=== PATIENT | male | born 1930 | race Caucasian/White ===

== ENCOUNTER → 2017-06-08 | Outpatient (REF) | payer MEDICARE, OTHER ==
[~2017-06-08] MED LIST: CALC-771 PO; CALC-854 PO; CALC600T63 PO; CHOL10005 PO; CHOL400T55 PO; CITRACAL PO; CYCL10TA29 PO; FIN5 PO; LISI-362 PO; LISI5TAB25 PO; LOR5/325 PO; MULT-977 PO; OMEP-153 PO; TAM4 PO
== END ==
LOC: ZZSENDIN 15:36
PROVIDERS: ATTEND Urology
DX: C61 Malignant neoplasm of prostate (principal)
CPT/HCPCS: 84403

== ENCOUNTER → 2017-06-12 | Outpatient (CLI) | payer MEDICARE, OTHER ==
[~2017-06-12] MED LIST changes: +GADOBENATE 529MG/1ML 15ML VIAL IVP ONE
--- NOTE | 2017-06-12 12:34 | RADIOLOGY IMAGING REPORT ---
FACILITY: [facility] PATIENT NAME: Shad Person : 1930 MR: [id number] V: [id number] EXAM DATE: ORDERING PHYSICIAN: REYNALDO MANN TECHNOLOGIST: Location: [facility] Patient: Shad Person : 1930 Visit/Account:[id number] Date of Sevice: 06/12/2017 BRAIN W W/O CONTRAST Comparisons: None. Additional pertinent history: Diplopia TECHNIQUE: Multiplanar, multisequence brain MRI was performed with and without gadolinium contrast. CONTRAST: 10 ml of MultiHance. FINDINGS: Sagittal midline structures and craniocervical junction: Negative. Midline shift: None. Ventricles: Mild enlargement of the lateral and third ventricles. Brain parenchyma: Diffusion weighted imaging: Negative. Gradient sequence: Negative. T2 weighted FLAIR images: Negative. Extra-axial spaces: Mild cerebral atrophy. Otherwise negative Dural venous sinuses and major arterial flow voids: Negative. Intracranial enhancement: Negative.. Mastoid air cells and paranasal sinuses: Mild mucosal thickening involving the ethmoid air cells. Ot herwise negative Surrounding soft tissues and orbits: Negative. Impression: 1. Age related changes as described above. 2. No evidence of acute intracranial pathology. Report Dictated By: Toi Quigley MD at 06/12/2017 12:25 PM Report E-Signed By: Toi Quigley MD at 06/12/2017 12:30 PM WSN:[id number]
== END ==
LOC: MRI 03:27
PROVIDERS: ATTEND Family Medicine
DX: G31.89 Other specified degenerative diseases of nervous system (principal)
CPT/HCPCS: 70553; A9577

== ENCOUNTER 2017-06-13 09:53 | Outpatient (RCR) | payer MEDICARE, OTHER ==
[2017-06-06 10:32] VITALS: BP 146/79
[~2017-06-13 09:53] MED LIST changes: -GADOBENATE 529MG/1ML 15ML VIAL IVP ONE
== END 2017-06-26 13:37 | disposition home or self-care (01) ==
LOC: RAON 09:53
PROVIDERS: ATTEND Radiology Radiation Oncology
DX: Z85.46 Personal history of malignant neoplasm of prostate (principal); Z92.3 Personal history of irradiation; K21.9 Gastro-esophageal reflux disease without esophagitis; Z87.891 Personal history of nicotine dependence
CPT/HCPCS: 36415; 84153; G0463; 99212

== ENCOUNTER 2017-10-19 10:17 | Outpatient (RCR) | payer MEDICARE, OTHER ==
[2017-09-13 10:05] VITALS: BP 147/82
--- NOTE | 2017-10-19 16:33 | ONCOLOGY FOLLOW UP NOTE ---
EVENT DATE: October 19, 2017 REASON FOR VISIT Oncologic reevaluation. HISTORY OF PRESENT ILLNESS Prostate adenocarcinoma status post initial IMRT and brachytherapy in May 2017 with a single dose of Lupron. The patient had a PSA failure in December of 2013 and was reinitiated on Lupron. The patient underwent palliative radiotherapy to the right superior ramus and inferior pubic ramus to a dose of 50 Gy in January of 2012. The patient continued on Lupron, and more recently has been discontinued on Lupron and is being observed. His testosterone levels have remained castrate, with his most recent level in June 2017 at 13. The patient presents today for followup. On presentation today, patient overall fells well. He does report some fatigue. His urinary symptoms are stable. His AOA score today is 9. He has nocturia 2-3 times per night with some moderate urgency. He does have occasional urge incontinence if he postpones urination too long. He denies any new sites of bone pain. The patient remains active and walks 1-1/2 miles a day and additionally does weightlifting. The patient most recently had a PSA of 0.17 on September 13, 2017. He is following with Dr. Kemp. The patient will be heading down to [place], [place] for the winter. PAST MEDICAL HISTORY 1. Prostate adenocarcinoma, see above. 2. History of chronic prostatitis. 3. GERD. PAST SURGICAL HISTORY 1. Status post appendectomy. 2. Hemorrhoidectomy in 1977. 3. Status post rectal fissure repair in 1976. 4. Status post tonsillectomy in 1955. ALLERGIES IBUPROFEN. MEDICATIONS 1. Cholecalciferol. 2. Lisinopril 10 mg. 3. Citracal. 4. Tamsulosin 0.4 mg daily. 5. Omeprazole. SOCIAL HISTORY The patient is a past smoker for 30 years with a 26 pack-year history. The patient drinks alcohol occasionally. He is . he and his spouse winter in [place], [place]. PHYSICAL EXAMINATION VITAL SIGNS: Temperature 98, pulse 66, blood pressure 153/72, respiratory rate 16, O2 saturation is 94% on room air. GENERAL APPEARANCE: The patient is sitting comfortably in a chair in no acute distress. HEENT: Pupils are equal, round, reactive to light and accommodation. Extraocular movements are intact. There are no lesions of the oropharynx. NECK: Supple. Trachea is midline. LYMPHATICS: There is no palpable supraclavicular lymphadenopathy bilaterally. LUNGS: Clear to auscultation and percussion bilaterally. CARDIOVASCULAR: Regular rate and rhythm. Normal S1, S2. No murmurs, rubs or gallops. ABDOMEN: Soft, nontender with active bowel sounds. No hepatosplenomegaly. EXTREMITIES: No edema, clubbing or cyanosis. NEUROLOGIC: The patient is alert and oriented x3. Gait is normal. Performance status 90%. IMPRESSION Prostate adenocarcinoma, initially diagnosed n . The patient completed definitive radiotherapy and had a biochemical relapse in 2013. He was initiated on Lupron, but is now on hold with this medication, as he remains castrate without an LHRH agonist. The patient's PSA s relatively stable at 0.17. PLAN We will follow up with the patient in eight months when he returns from [place]. We will recheck his PSA then as well as a total testosterone. If the patient's PSA does continue to rise, we will likely reinitiate an LHRH agonist. MTDD
== END 2017-11-01 09:19 | disposition home or self-care (01) ==
LOC: RAON 10:17
PROVIDERS: ATTEND Urology
DX: C61 Malignant neoplasm of prostate (principal); Z92.3 Personal history of irradiation; K21.9 Gastro-esophageal reflux disease without esophagitis; Z87.891 Personal history of nicotine dependence
CPT/HCPCS: 36415; 84153; G0463; 99212

== ENCOUNTER → 2017-12-18 | Outpatient (CLI) | payer MEDICARE, OTHER ==
[2017-12-18 09:24] VITALS: BP 166/88
== END ==
LOC: SPU 09:20
PROVIDERS: ATTEND Urology
DX: C61 Malignant neoplasm of prostate (principal)
CPT/HCPCS: 36415; 84153; 84403

== ENCOUNTER → 2018-07-11 | Outpatient (CLI) | payer MEDICARE, OTHER ==
[2018-07-11 09:47] VITALS: BP 149/80
== END ==
LOC: SPU 07:46
PROVIDERS: ATTEND Urology
DX: C61 Malignant neoplasm of prostate (principal)
CPT/HCPCS: 36415; 84153; 84403

== ENCOUNTER 2018-07-31 06:00 | Outpatient (RCR) | payer MEDICARE, OTHER ==
--- NOTE | 2018-08-01 11:14 | RADIOLOGY IMAGING REPORT ---
FACILITY: [facility] PATIENT NAME: Shad Person : 1930 MR: [id number] V: [id number] EXAM DATE: ORDERING PHYSICIAN: TARIQ NEWMAN TECHNOLOGIST: Location: [facility] Patient: Shad Person : 1930 Visit/Account:[id number] Date of Sevice: 07/31/2018 THYROID IMAGE/UPTAKE MULTIPLE HISTORY: Abnormal weight loss TECHNIQUE: 368 microcuries I-123 were administered orally. Radioiodine uptake values were calculated at 24 hours following tracer administration. Gamma camera images were obtained of the neck in variou s orientations. COMPARISON: None FINDINGS: Thyroid radioiodine uptake at 24 hours is 26.1% (normal range 15-40 %). Thyroid radioiodine uptake at six hours is 11.3% (normal range 5-15%) Size and shape: Normal. Homogeneity: There is diffuse increased uptake over the right lobe relative to the left Nodules: None evident. IMPRESSION: Normal 24-hour thyroid uptake of 26.1% Normal six hour thyroid uptake of 11.3% There is diffuse increased uptake over the right lobe relative to the left. Correlation with thyroid ultrasound recommended Report Dictated By: Lula Bryant MD at 08/01/2018 11:06 AM Report E-Signed By: Lula Bryant MD at 08/01/2018 11:08 AM WSN:[email or web address]
== END 2018-07-31 18:00 | disposition home or self-care (01) ==
LOC: NUC 06:00 → EDSTATUS 06:53 → NUC 18:00
PROVIDERS: ATTEND Family Medicine
DX: R63.4 Abnormal weight loss (principal)
CPT/HCPCS: 78014; A9516

== ENCOUNTER → 2018-08-08 | Outpatient (CLI) | payer MEDICARE, OTHER ==
--- NOTE | 2018-08-08 14:56 | RADIOLOGY IMAGING REPORT ---
FACILITY: [facility] PATIENT NAME: Shad Person : 1930 MR: [id number] V: [id number] EXAM DATE: ORDERING PHYSICIAN: TARIQ NEWMAN TECHNOLOGIST: Location: [facility] Patient: Shad Person : 1930 Visit/Account:[id number] Date of Sevice: 08/08/2018 THYROID HISTORY: Fatigue and weight loss COMPARISON: None. FINDINGS: SIZE: Normal. Right lobe: 3.9 x 2.2 x 2.2 cm Left lobe: 4.3 x 1.3 x 1.5 cm Isthmus: 5 mm PARENCHYMA: The right lobe is heterogeneous NODULES: Right lobe: * There is a small cluster of cysts centrally within the right lobe the largest measuring 5 mm in di ameter Left lobe: * There is a 9 mm well-circumscribed slightly echogenic nodule in the mid to inferior left lobe Isthmus: * None discrete. VASCULARITY: Increased ADDITIONAL FINDINGS: None. IMPRESSION: 9 mm well-circumscribed slightly echogenic nodule in the mid to inferior left lobe Small cluster cysts centrally within the heterogeneous right lobe Both lobes are slightly hyper vascular REFERENCE: 2015 [place] [employer] Management Guidelines for Adult Patients with Thyroid Nodules and D ifferentiated Thyroid Cancer: The [place] [employer] Guidelines Task Force on Thyroid Nodul es and Differentiated Thyroid Cancer. SONOGRAPHIC PATTERNS: * Benign: Purely cystic nodules (no solid component); estimated risk of malignancy <1 percent; no bi opsy recommended. * Very Low Suspicion: Spongiform or partially cystic nodules without any of the sonographic features described in low, intermediate, or high suspicion patterns; estimated risk of malignancy <3 percent; consider FNA at > 2 cm (Observation without FNA is also a reasonable option). * Low Suspicion: Isoechoic or hyperechoic solid nodule, or partially cystic nodule with eccentric so lid areas, without microcalcification, irregular margin or ETE (extra-thyroidal extension), or taller than wide shape; estimated risk of malignancy 5-10 percent; recommend FNA at >1.5 cm. * Intermediate Suspicion: Hypoechoic solid nodule with smooth margins without microcalcifications, E TE (extra-thyroidal extension), or taller than wide shape; estimated risk of malignancy 10-20 percent ; recommend FNA at > 1 cm. * High Suspicion: Solid hypoechoic nodule or solid hypoechoic component of a partially cystic nodule with one or more of the following features: irregular margins (infiltrative, microlobulated), microc alcifications, taller than wide shape, rim calcifications with small extrusive soft tissue component, evidence of ETE (extra-thyroidal extension); estimated risk of malignancy >70-90 percent; recommend FNA at > 1 cm. NOTES: * Although a sonographically suspicious subcentimeter thyroid nodule without evidence of extrathyroi mahendra extension or sonographically suspicious lymph nodes may be observed with close sonographic follow -up rather than pursuing immediate FNA, patient age and preference may modify decision-making. A > 50% interval increase in nodule volume and/or development of new suspicious sonographic features are felt to be a valid reasons for potential re-aspiration of a nodule previously shown to have benig n FNA cytology. Report Dictated By: Lula Bryant MD at 08/08/2018 2:46 PM Report E-Signed By: Lula Bryant MD at 08/08/2018 2:48 PM WSN:[email or web address]
== END ==
LOC: US 00:08
PROVIDERS: ATTEND Family Medicine
DX: E04.2 Nontoxic multinodular goiter (principal)
CPT/HCPCS: 76536